=== PATIENT | female | born 1995 | race Two or more races ===

== ENCOUNTER 2021-08-02 11:18 | Emergency (ER) | payer OTHER ==
[2021-08-02 12:58] LABS: BASO % 0.6 % (0.0-1.0); EOS # 0.1 10^3/uL (0.0-0.5); EOS % 1.6 % (0.0-3.0); HEMOGLOBIN 13.4 g/dl (12.0-15.5); LYMPH # 2.4 10^3/uL (1.5-5.0); LYMPH % 34.5 % (24.0-44.0); MEAN CORPUSCULAR HEMOGLOBIN 28.1 pg (27.0-33.0); MEAN CORPUSCULAR HGB CONC 32.7 g/dl (32.0-36.5); MONO # 0.4 10^3/uL (0.0-0.8); MONO % 6.2 % (2.0-8.0); NEUTROPHILS # 3.9 10^3/uL (1.5-8.5); NEUTROPHILS % 56.8 % (36.0-66.0); PLATELET COUNT, AUTOMATED 252 10^3/uL (150-450); RED BLOOD COUNT 4.77 10^6/uL (4.00-5.40); WHITE BLOOD COUNT 6.8 10^3/uL (4.0-10.0)
[2021-08-02 13:27] LABS: ALBUMIN 4.1 GM/DL (3.2-5.2); ALT/SGPT 15 U/L (12-78); BILIRUBIN,DIRECT < 0.1 MG/DL (0.0-0.2); BILIRUBIN,TOTAL 0.3 MG/DL (0.2-1.0); LIPASE 88 U/L (73-393); TOTAL PROTEIN 7.9 GM/DL (6.4-8.2)
[2021-08-02] MEDS ORDERED: ONDANSETRON 4MG/2ML VIAL IV ONE (14:00)
[2021-08-02] MEDS ORDERED: KETOROLAC 30 MG/ML 1ML VIAL IV ONE (14:00)
[2021-08-02] MEDS ORDERED: NS 1,000 ML IV ONE (14:00)
[2021-08-02] MEDS ORDERED: ISOVUE-370 76% 100ML VIAL As Ordered ONE (14:07)
[2021-08-02 15:10] VITALS: BP 145/66
== END 2021-08-02 15:25 | disposition home or self-care (01) ==
LOC: M ED 11:18
DX: R10.30 Lower abdominal pain, unspecified (principal)
CPT/HCPCS: 36415; 74177; 80047; 80076; 81001; 83690; 84702; 85025; 96361; 96374; 96375; 99284; J1885; J2405; Q9967

== ENCOUNTER 2022-01-16 12:17 | Emergency (ER) | payer OTHER ==
[~2022-01-16] VITALS: Ht 172.7 cm; Wt 92.8 kg
[2022-01-16] MEDS ORDERED: BOOSTRIX/ADACEL VACCINE (DIPHTH/PERTUSS/ACELL/TETANUS) 0.5ML SYR IM ONE (16:30)
[2022-01-16 16:57] VITALS: BP 138/86
== END 2022-01-16 16:58 | disposition home or self-care (01) ==
LOC: M ED 12:17
DX: S61.307A Unspecified open wound of left little finger with damage to nail, initial encounter (principal); W23.0XXA Caught, crushed, jammed, or pinched between moving objects, initial encounter; Y92.009 Unspecified place in unspecified non-institutional (private) residence as the place of occurrence of the external cause; Z23 Encounter for immunization

== ENCOUNTER → 2022-10-18 | Outpatient (CLI) | payer OTHER | LOC: M WHC 07:48 | PROVIDERS: ATTEND Nurse Practitioner Primary Care | DX: N64.59 Other signs and symptoms in breast (principal); Z98.82 Breast implant status ==

== ENCOUNTER → 2023-05-01 | Outpatient (REF) | payer OTHER | LOC: M LAB REF 16:08 | PROVIDERS: ATTEND Physician Assistant | DX: B34.9 Viral infection, unspecified (principal) ==

== ENCOUNTER 2024-03-26 08:57 | Outpatient (RCR) | payer MEDICAID | END 2024-03-27 | LOC: M PT 08:57 | PROVIDERS: ATTEND Physical Medicine & Rehabilitation | DX: M25.512 Pain in left shoulder (principal); M54.2 Cervicalgia; M65.4 Radial styloid tenosynovitis [de Quervain] ==

== ENCOUNTER 2024-04-08 09:10 | Outpatient (RCR) | payer MEDICAID | END 2024-04-24 | LOC: M PT 09:10 | PROVIDERS: ATTEND Physical Medicine & Rehabilitation | DX: M54.2 Cervicalgia (principal); M25.512 Pain in left shoulder ==

== ENCOUNTER → 2024-10-07 | Outpatient (REF) | payer MEDICAID ==
[2024-10-07 12:42] LABS: ALT/SGPT 15 U/L (7.0-40); AST/SGOT 19 U/L (<34); CALCIUM LEVEL 9.4 MG/DL (8.5-10.1); CARBON DIOXIDE LEVEL 25 MMOL/L (20-31); CHLORIDE LEVEL 104 MMOL/L (98-107); CHOLESTEROL LEVEL 170 MG/DL (<200); CHOLESTEROL RISK RATIO 2.93 (<5); CREATININE FOR GFR 0.62 MG/DL (0.55-1.30); GLOMERULAR FILTRATION RATE > 90.0 (>60); LDL CHOLESTEROL 90.3 MG/DL (<100); NON-HDL-C 112.1 MG/DL; POTASSIUM SERUM 4.2 MMOL/L (3.5-5.1); SODIUM LEVEL 141 MMOL/L (136-145); TRIGLYCERIDES LEVEL 109 MG/DL (<150)
[2024-10-07 13:10] LABS: ESTIMATED AVERAGE GLUCOSE 100.0 MG/DL (60-110)
[2024-10-07 13:15] LABS: HIV 1&2 SCREEN NEGATIVE (NEGATIVE)
[2024-10-07 13:23] LABS: HEPATITIS C VIRUS ABY INDEX < 0.02 INDEX (<0.8)
== END ==
LOC: M LAB REF 11:56
PROVIDERS: ATTEND Student in an Organized Health Care Education/Training Program
DX: Z68.32 Body mass index [BMI] 32.0-32.9, adult (principal); Z11.3 Encounter for screening for infections with a predominantly sexual mode of transmission